=== PATIENT | female | born 1965 | race Caucasian/White ===

== ENCOUNTER 2022-01-15 13:45 | Emergency (ER) | payer OTHER ==
[2022-01-15 15:05] LABS: BASOPHIL 0.4 % (0-2); EOSINOPHIL 0.9 % (0-5); HCT 40.9 % (37.0-47.0); HGB 13.6 g/dl (12.5-16.0); LYMPHOCYTE 16.2 % (15-48); MCH 31.2 pg (25.0-31.0); MCHC 33.3 g/dL (32.0-36.0); MCV 93.8 fL (78.0-100.0); MONOCYTE 6.7 % (0-12); MPV 10.6 fL (6.0-9.5); NEUTROPHIL 75.6 % (41-80); NRBC 0; PLT 354 K/uL (150-400); RBC 4.36 M/uL (4.20-5.40); RDW 12.6 % (11.5-14.0); WBC 10.5 K/uL (4.0-10.5)
[2022-01-15 15:31] LABS: ALBUMIN 4.3 g/dL (3.4-5.0); BILIRUBIN - TOTAL 0.4 mg/dL (0.2-1.0); CREATININE 0.89 mg/dL (0.51-0.95); GLOBULIN (CALCULATION) 3.8 g/dL; POTASSIUM 3.5 mmol/L (3.5-5.1); TOTAL PROTEIN 8.1 g/dL (6.4-8.2)
[2022-01-15 15:38] LABS: LACTIC ACID 0.5 mmol/L (0.4-1.9)
[2022-01-15 15:43] LABS: CORONAVIRUS 2019 SARS-COV-2 NEGATIVE (NEGATIVE); INFLUENZA A NAA NEGATIVE (NEGATIVE)
[2022-01-15] MEDS ORDERED: BACTRIM DS TAB1 EACH PO (17:36)
[2022-01-15] MEDS ORDERED: ONDANSETRON HCL4 MG PO (17:36)
[2022-01-15] MEDS ORDERED: BENTYL10 MG PO (17:36)
[2022-01-15] MEDS ORDERED: METRONIDAZOLE500 MG PO (17:36)
== END 2022-01-15 18:20 | disposition home or self-care (01) ==
LOC: FER 13:45
PROVIDERS: Nurse Practitioner Family
DX: K52.9 Noninfective gastroenteritis and colitis, unspecified (principal); I10 Essential (primary) hypertension; Z20.822 Contact with and (suspected) exposure to COVID-19; Z88.0 Allergy status to penicillin; Z79.899 Other long term (current) drug therapy
CPT/HCPCS: 36415; 80053; 82150; 83605; 83690; 84145; 85025; 87040; J2270; J2405; J7030; Q9967; U0002